=== PATIENT | female | born 1960 | race African-American/Black ===

== ENCOUNTER 2018-08-29 07:57 | Emergency (ER) | payer MEDICAID ==
[~2018-08-29] VITALS: Ht 160 cm; Wt 68.0 kg
[2018-08-29] MEDS ORDERED: PREDNISONE 20MG TABLET PO STA (08:25)
[2018-08-29] MEDS ORDERED: ALBUTEROL (0.083%) 2.5MG/3ML NEB HHN STA (08:25)
[2018-08-29] MEDS ORDERED: IPRATROPIUM BROMIDE (0.02%) 0.5MG/2.5ML NEB HHN STA (08:25)
[2018-08-29 08:48] LABS: BASOPHILS % 0.9 % (0.0-2.0); EOSINOPHILS % 5.7 % (0.0-5.0); HEMATOCRIT. 38.3 % (36.0-48.0); HEMOGLOBIN. 12.8 g/dL (12.0-16.0); LYMPHOCYTES % 33.4 % (20.0-50.0); MEAN CORPUSCULAR HEMOGLOBIN 30.3 pg (28.0-32.0); MEAN CORPUSCULAR VOLUME 90.3 fL (81.0-99.0); MEAN PLATELET VOLUME 9.1 fl (7.4-10.4); MONOCYTES % 10.3 % (2.0-8.0); NEUTROPHILS % 49.7 % (40.0-76.0); PLATELET 208 x1000/uL (130-400); RED BLOOD CELL COUNT 4.24 mill/uL (4.2-5.4); RED CELL DISTRIBUTION WIDTH 13.1 % (11.6-14.6)
[2018-08-29 08:56] LABS: CHLORIDE 106 mEq/L (98-107)
[2018-08-29 09:00] LABS: PROTHROMBIN TIME 10.2 sec (9.6-11.0)
[2018-08-29] MEDS ORDERED: POTASSIUM CHLORIDE 20MEQ TABLET SR PO SCH (11:00)
[2018-08-29 12:19] VITALS: BP 140/81
== END 2018-08-29 12:19 | disposition home or self-care (01) ==
LOC: ER 07:57
DX: J45.901 Unspecified asthma with (acute) exacerbation (principal); J44.9 Chronic obstructive pulmonary disease, unspecified; Z87.891 Personal history of nicotine dependence
CPT/HCPCS: 36415; 80053; 83690; 85025; 85610; 94640; 99283; J7512; J7611; Z7610

== ENCOUNTER 2018-11-26 06:59 | Emergency (ER) | payer MEDICAID ==
[~2018-11-26] VITALS: Ht 162.6 cm; Wt 70.0 kg
[2018-11-26] MEDS ORDERED: ACETAMINOPHEN 325MG TABLET PO STA (07:38)
[2018-11-26] MEDS ORDERED: METHYLPREDNISOLONE SOD SUCC 125 MG/2 ML VIAL IV ONE (07:45)
[2018-11-26] MEDS ORDERED: ALBUTEROL (0.083%) 2.5MG/3ML NEB HHN ONE ×2 (07:45→08:30)
[2018-11-26] MEDS ORDERED: ALBUTEROL (0.083%) 2.5MG/3ML NEB ONE ×2 (07:51→08:29)
[2018-11-26 08:40] LABS: BASOPHILS % 0.8 % (0.0-2.0); EOSINOPHILS % 2.7 % (0.0-5.0); HEMATOCRIT. 36.4 % (36.0-48.0); HEMOGLOBIN. 12.5 g/dL (12.0-16.0); LYMPHOCYTES % 38.5 % (20.0-50.0); MEAN CORPUSCULAR HEMOGLOBIN 31.7 pg (28.0-32.0); MEAN PLATELET VOLUME 9.7 fl (7.4-10.4); MONOCYTES % 11.7 % (2.0-8.0); NEUTROPHILS % 46.3 % (40.0-76.0); PLATELET 155 x1000/uL (130-400); RED BLOOD CELL COUNT 3.95 mill/uL (4.2-5.4); RED CELL DISTRIBUTION WIDTH 13.6 % (11.6-14.6)
[2018-11-26 08:43] LABS: CHLORIDE 109 mEq/L (98-107)
[2018-11-26 08:52] LABS: CLARITY URINE CLEAR (CLEAR); COLOR URINE YELLOW (YELLOW); KETONES URINE NEGATIVE (NEGATIVE); LEUKOCYTE ESTERASE URINE NEGATIVE (NEGATIVE); NITRITE URINE NEGATIVE (NEGATIVE); OCCULT BLOOD URINE TRACE (NEGATIVE); PH URINE 5.5 (4.5-8.0); PROTEIN URINE NEGATIVE (NEGATIVE); SPECIFIC GRAVITY URINE 1.039 (1.005-1.030)
[2018-11-26 09:45] VITALS: BP 105/58
== END 2018-11-26 09:45 | disposition home or self-care (01) ==
LOC: ER 06:59
DX: J44.9 Chronic obstructive pulmonary disease, unspecified (principal); H40.9 Unspecified glaucoma
CPT/HCPCS: 36415; 71045; 80053; 81003; 83880; 84484; 85025; 93005; 94640; 96374; 99284; J2930; J7611; Z7610

== ENCOUNTER 2019-01-02 08:13 | Emergency (ER) | payer MEDICAID ==
[~2019-01-02] VITALS: Ht 162.6 cm; Wt 73.0 kg
[2019-01-02] MEDS ORDERED: IPRATROPIUM BROMIDE (0.02%) 0.5MG/2.5ML NEB HHN STA (08:37)
[2019-01-02] MEDS ORDERED: ALBUTEROL (0.083%) 2.5MG/3ML NEB HHN STA (08:37)
[2019-01-02] MEDS ORDERED: METHYLPREDNISOLONE SOD SUCC 125 MG/2 ML VIAL IV STA (08:37)
[2019-01-02 10:45] VITALS: BP 124/77
== END 2019-01-02 10:51 | disposition home or self-care (01) ==
LOC: ER 08:13
DX: J44.1 Chronic obstructive pulmonary disease with (acute) exacerbation (principal); H40.9 Unspecified glaucoma
CPT/HCPCS: 94644; 96374; 99285; J2930; J7611; Z7610; A4315

== ENCOUNTER 2019-01-14 08:27 | Emergency (ER) | payer MEDICAID ==
[~2019-01-14] VITALS: Ht 162.6 cm; Wt 74.0 kg
[2019-01-14] MEDS ORDERED: SODIUM CHLORIDE 0.9% 1,000 ML IV ONE (09:00)
[2019-01-14] MEDS ORDERED: DIPHENHYDRAMINE 50MG/ML VIAL IV ONE (09:00)
[2019-01-14] MEDS ORDERED: METOCLOPRAMIDE HCL 10MG/2ML VIAL IV ONE (09:00)
[2019-01-14] MEDS ORDERED: ACETAZOLAMIDE SODIUM 500MG/VIAL IV ONE ×2 (09:45→10:45)
[2019-01-14] MEDS ORDERED: TIMOLOL MALEATE 0.25% OPHTH DROPS 5ML EACHEYE SCH (10:45)
[2019-01-14] MEDS ORDERED: ACETAZOLAMIDE SODIUM 500MG/VIAL IV SCH (10:45)
[2019-01-14] MEDS ORDERED: TETRACAINE 0.5% OPHTH DROPS 4ML BOTHEYE ONE (12:45)
[2019-01-14] MEDS ORDERED: PILOCARPINE HCL 2% OPHTH DROPS 15ML BOTHEYE SCH (14:00)
[2019-01-14] MEDS ORDERED: PILOCARPINE HCL 1% OPHTH DROPS 15ML BOTHEYE SCH (14:15)
[2019-01-14 14:40] VITALS: BP 96/80
== END 2019-01-14 14:50 | disposition home or self-care (01) ==
LOC: ER 08:27
DX: H40.213 Acute angle-closure glaucoma, bilateral (principal); J44.9 Chronic obstructive pulmonary disease, unspecified; Z87.891 Personal history of nicotine dependence
CPT/HCPCS: 96374; 96375; 99284; J1120; J1200; J2765; J7030

== ENCOUNTER 2019-01-24 06:06 | Emergency (ER) | payer MEDICAID ==
[~2019-01-24] VITALS: Ht 162.6 cm; Wt 71.0 kg
[2019-01-24] MEDS ORDERED: IPRATROPIUM BROMIDE (0.02%) 0.5MG/2.5ML NEB HHN STA (06:46)
[2019-01-24] MEDS ORDERED: PREDNISONE 20MG TABLET PO STA (06:46)
[2019-01-24] MEDS ORDERED: ALBUTEROL (0.083%) 2.5MG/3ML NEB HHN STA (06:46)
[2019-01-24 08:04] VITALS: BP 132/76
== END 2019-01-24 08:38 | disposition home or self-care (01) ==
LOC: ER 06:44
DX: J44.9 Chronic obstructive pulmonary disease, unspecified (principal); H40.9 Unspecified glaucoma
CPT/HCPCS: 71045; 94644; 99285; J7512; J7611; Z7610

== ENCOUNTER 2019-02-26 07:18 | Emergency (ER) | payer MEDICAID ==
[~2019-02-26] VITALS: Ht 162.6 cm; Wt 71.0 kg
[2019-02-26] MEDS ORDERED: ACETAMINOPHEN 325MG TABLET PO STA (08:42)
[2019-02-26] MEDS ORDERED: KETOROLAC 30MG/ML VIAL IV STA (08:42)
[2019-02-26] MEDS ORDERED: IPRATROPIUM/ALBUTEROL 0.5-3(2.5)MG/3ML NEB HHN ONE (09:00)
[2019-02-26 09:08] LABS: BASOPHILS % 1.3 % (0.0-2.0); EOSINOPHILS % 1.9 % (0.0-5.0); HEMATOCRIT. 39.4 % (36.0-48.0); HEMOGLOBIN. 13.3 g/dL (12.0-16.0); LYMPHOCYTES % 27.3 % (20.0-50.0); MEAN CORPUSCULAR HEMOGLOBIN 30.5 pg (28.0-32.0); MEAN CORPUSCULAR VOLUME 90.6 fL (81.0-99.0); MEAN PLATELET VOLUME 8.8 fl (7.4-10.4); NEUTROPHILS % 60.5 % (40.0-76.0); PLATELET 244 x1000/uL (130-400); RED BLOOD CELL COUNT 4.34 mill/uL (4.2-5.4); RED CELL DISTRIBUTION WIDTH 12.6 % (11.6-14.6)
[2019-02-26 09:15] LABS: CHLORIDE 106 mEq/L (98-107)
[2019-02-26 09:16] LABS: CLARITY URINE CLEAR (CLEAR); COLOR URINE YELLOW (YELLOW); KETONES URINE NEGATIVE (NEGATIVE); LEUKOCYTE ESTERASE URINE NEGATIVE (NEGATIVE); NITRITE URINE NEGATIVE (NEGATIVE); OCCULT BLOOD URINE 1+ (NEGATIVE); PH URINE 5.5 (4.5-8.0); PROTEIN URINE NEGATIVE (NEGATIVE); SPECIFIC GRAVITY URINE 1.021 (1.005-1.030); UROBILINOGEN URINE 0.2 E.U./dL (0.2-1.0)
[2019-02-26 10:55] VITALS: BP 135/75
== END 2019-02-26 11:06 | disposition home or self-care (01) ==
LOC: ER 07:18
DX: R10.9 Unspecified abdominal pain (principal); J44.1 Chronic obstructive pulmonary disease with (acute) exacerbation
CPT/HCPCS: 36415; 74176; 80053; 81003; 83690; 85025; 96374; 99284; J1885; Z7610